=== PATIENT | female | born 1940 | race Hispanic/Latino ===

== ENCOUNTER 2018-07-14 09:04 | Inpatient (IN) | payer MEDICARE ==
[~2018-07-14] VITALS: Ht 152.4 cm; Wt 64.0 kg
[2018-07-14] VITALS (12 sets, daily range): BP systolic 114–148; BP diastolic 56–70
[2018-07-14] MEDS ORDERED: IOHEXOL-350 50ML VIAL IV ONE (11:48)
[2018-07-14] MEDS ORDERED: HEPARIN SODIUM 1000UNIT/ML 10ML VIAL ONE (11:48)
[2018-07-14] MEDS ORDERED: IOHEXOL 350 MG/ML 100ML INFUS..BTL IV ONE (11:49)
[2018-07-14] MEDS ORDERED: LIDOCAINE HCL 2% 20ML ONE (11:49)
[2018-07-14] MEDS ORDERED: DiphenhydrAMINE HCL 50 MG/ML VIAL ONE (12:05)
[2018-07-14] MEDS ORDERED: HYDROCORTISONE SOD SUCCINATE 100 MG/2 ML VIAL ONE (12:05)
[2018-07-14] MEDS ORDERED: FAMOTIDINE/PF 20 MG/2 ML VIAL IV ONE (12:06)
[2018-07-14] MEDS ORDERED: LABETALOL HCL 5 MG/ML 20ML VIAL IV ONE (12:28)
[2018-07-14] MEDS ORDERED: MAGNESIUM HYDROXIDE 30 ML/UDCUP PO PRN (13:15)
[2018-07-14] MEDS ORDERED: DEXTROSE 50%-WATER 50 ML DISP.SYRIN IV PRN (13:15)
[2018-07-14] MEDS: MEROPENEM 1 GM VIAL IVP SCH ×2 (13:15→22:57)
[2018-07-14] MEDS ORDERED: GLUCAGON 1MG KIT 1 MG ML IM PRN (13:15)
[2018-07-14] MEDS: LAMOTRIGINE 25 MG TAB PO SCH ×2 (14:00→22:56)
[2018-07-14] MEDS: INSULIN HUMULIN R 100 UNIT/ML 3ML SQ SCH ×2 (16:45→21:00)
[2018-07-14] MEDS ORDERED: ATORVASTATIN CALCIUM 20 MG TABLET PO SCH (21:00)
[2018-07-14] MEDS ORDERED: GABAPENTIN 300 MG CAPSULE PO SCH (21:00)
[2018-07-14] MEDS: DOCUSATE SODIUM 100 MG CAP PO SCH (22:57)
[2018-07-14] MEDS: METOPROLOL TARTRATE 50 MG TAB PO SCH (22:57)
[2018-07-14] MEDS: GLIPIZIDE XL 5MG TAB PO SCH (22:57)
[2018-07-15 03:45] LABS: HEMATOCRIT 27.8 % (36-48); MEAN CORPUSCULAR HGB CONC 33.7 g/dL (32.0-36.0); MEAN CORPUSCULAR VOLUME 83.1 fL (79-99); PLATELET COUNT (AUTO) 237 K/uL (130-400); RED BLOOD CELL COUNT(AUTO) 3.34 MIL/uL (4.00-5.50); RED CELL DISTRIBUTION WIDTH 16.6 % (11.0-15.5); WHITE BLOOD COUNT (AUTO) 5.6 K/uL (4.8-10.8)
[2018-07-15 03:59] LABS: CREATININE 0.8 mg/dL (0.5-1.5); POTASSIUM 3.7 mmol/L (3.5-5.1)
[2018-07-15 04:00] VITALS: BP 112/56
[2018-07-15] MEDS ORDERED: PANTOPRAZOLE SODIUM 40 MG TABLET.DR PO ONE (04:21)
[2018-07-15] MEDS: MEROPENEM 1 GM VIAL IVP SCH ×2 (04:45→13:32)
[2018-07-15] MEDS ORDERED: PANTOPRAZOLE SODIUM 40 MG TABLET.DR PO SCH (06:00)
[2018-07-15] MEDS: INSULIN HUMULIN R 100 UNIT/ML 3ML SQ SCH ×2 (06:18→13:26)
[2018-07-15 07:14] VITALS: BP 111/58
[2018-07-15] MEDS ORDERED: NITROGLYCERIN 0.4 MG SL TAB SL PRN (08:30)
[2018-07-15] MEDS ORDERED: ASPIRIN 81MG TAB.CHEW PO SCH (09:00)
[2018-07-15] MEDS ORDERED: MEMANTINE HCL 5 MG TABLET PO SCH (09:00)
[2018-07-15] MEDS ORDERED: POTASSIUM CHLORIDE 20 MEQ ERTAB PO SCH (09:00)
[2018-07-15] MEDS ORDERED: LINAGLIPTIN 5 MG TABLET PO SCH (09:00)
[2018-07-15] MEDS: GLIPIZIDE XL 5MG TAB PO SCH (10:08)
[2018-07-15] MEDS: LAMOTRIGINE 25 MG TAB PO SCH ×2 (10:09→13:32)
[2018-07-15] MEDS: METOPROLOL TARTRATE 50 MG TAB PO SCH (10:09)
[2018-07-15] MEDS: DOCUSATE SODIUM 100 MG CAP PO SCH (10:09)
[2018-07-15 11:24] VITALS: BP 120/63
[2018-07-15] MEDS ORDERED: CHOL50004 PO (12:47)
[2018-07-15] MEDS ORDERED: MECL12.585 PO (12:47)
[2018-07-15] MEDS ORDERED: METO50TA18 PO (12:47)
[2018-07-15] MEDS ORDERED: SOLI5 PO (12:47)
[2018-07-15] MEDS ORDERED: GABA-531 PO (12:47)
[2018-07-15] MEDS ORDERED: ALEN70TA47 PO (12:47)
[2018-07-15] MEDS ORDERED: DOCU-116 PO (12:47)
[2018-07-15] MEDS ORDERED: FERS325 PO (12:47)
[2018-07-15] MEDS ORDERED: METF-446 PO (12:47)
[2018-07-15] MEDS ORDERED: LINA1TAB5 PO (12:47)
[2018-07-15] MEDS ORDERED: ATOR20TA65 PO (12:47)
[2018-07-15] MEDS ORDERED: INSU100V12 SQ (12:47)
[2018-07-15] MEDS ORDERED: CILO100T PO (12:47)
[2018-07-15] MEDS ORDERED: LISI-617 PO (12:47)
[2018-07-15] MEDS ORDERED: MEMA10TA20 PO (12:47)
[2018-07-15] MEDS ORDERED: GLIP-162 PO (12:47)
[2018-07-15] MEDS ORDERED: LAMO25TA8 PO (12:47)
[2018-07-15] MEDS ORDERED: CLOP75TA32 PO (12:47)
[2018-07-15] MEDS ORDERED: LINA5TAB PO (12:47)
[2018-07-15] MEDS ORDERED: RANI150T7 PO (12:47)
[2018-07-15 16:09] VITALS: BP 124/60
== END 2018-07-15 17:15 | disposition home or self-care (01) | DRG 281 ==
LOC: 2AH 10:54 → UNDOADMIN 10:54 → 2AH 11:40
PROVIDERS: ADMIT Internal Medicine Pulmonary Disease; ATTEND Internal Medicine Pulmonary Disease
PROC: 4A023N7 Measurement of Cardiac Sampling and Pressure, Left Heart, Percutaneous Approach (ICD-10-PCS; principal; 2018-07-14)
PROC: B2111ZZ Fluoroscopy of Multiple Coronary Arteries using Low Osmolar Contrast (ICD-10-PCS; 2018-07-14)
PROC: B2151ZZ Fluoroscopy of Left Heart using Low Osmolar Contrast (ICD-10-PCS; 2018-07-14)
DX: I21.4 Non-ST elevation (NSTEMI) myocardial infarction (principal); N39.0 Urinary tract infection, site not specified; I25.119 Atherosclerotic heart disease of native coronary artery with unspecified angina pectoris; B96.20 Unspecified Escherichia coli [E. coli] as the cause of diseases classified elsewhere; E11.9 Type 2 diabetes mellitus without complications; E66.9 Obesity, unspecified; E78.5 Hyperlipidemia, unspecified; I10 Essential (primary) hypertension; Z16.12 Extended spectrum beta lactamase (ESBL) resistance; Z68.27 Body mass index [BMI] 27.0-27.9, adult; Z88.8 Allergy status to other drugs, medicaments and biological substances; Z91.041 Radiographic dye allergy status; Z79.84 Long term (current) use of oral hypoglycemic drugs; Z95.5 Presence of coronary angioplasty implant and graft
CPT/HCPCS: 36415; 80048; 82948; 85027; 93458; A4218; C1894; J1200; J1644; J1720; J1815; J2185; J3490; Q9967